=== PATIENT | female | born 1960 | race Caucasian/White ===

== ENCOUNTER 2018-04-26 12:28 | Emergency (ER) | payer OTHER ==
[2018-04-26] MEDS ORDERED: SUCRALFATE 1GM/10ML UCUP PO ONE (14:00)
[2018-04-26 14:06] LABS: Absolute Lymphocytes (CBC) 1.9 K/uL (0.7-4.9); Absolute Monocytes 0.6 K/uL (0.1-1.3); Absolute Neutrophil 4.9 K/uL (1.8-8.0); Basophils % 0.3 % (0-1.3); Eosinophils % 0.6 % (0-4.4); Hematocrit 42.2 % (36.0-45.0); Lymphocytes % 25.9 % (15.3-44.8); MCV 92.9 fL (80-100); MPV 7.6 fL (7.6-11.3); Monocytes % 7.5 % (3.3-12.3); RBC Red Blood Cell Count 4.55 M/uL (3.86-4.86)
[2018-04-26 14:14] LABS: ALT/SGPT 45 U/L (12-78); AST/SGOT 28 U/L (15-37); Albumin 4.1 g/dL (3.4-5.0); Alkaline Phosphatase 79 U/L (45-117); BUN Blood Urea Nitrogen 12 mg/dL (7-18); Bicarbonate 30 mmol/L (21-32); Bilirubin Direct 0.2 mg/dL (0-0.2); Bilirubin Total 1.5 mg/dL (0.2-1.0); Glucose Level 94 mg/dL (74-106); Lipase 73 U/L (73-393); Magnesium 2.2 mg/dL (1.8-2.4); NT PRO-BNP 99 pg/mL (<125); Potassium 3.9 mmol/L (3.5-5.1); Protein, Total 7.7 g/dL (6.4-8.2); Sodium Level 139 mmol/L (136-145); Troponin (Emerg Dept Use Only) < 0.02 ng/mL (0.0-0.045)
--- NOTE | 2018-04-26 14:38 | RAD REPORT ---
EXAM DESCRIPTION: RAD - Chest Single View - 04/26/2018 2:14 pm CLINICAL HISTORY: Chest pain, epigastric pain COMPARISON: None. TECHNIQUE: AP portable chest image was obtained 1410 hours . FINDINGS: No peripheral mass, consolidation or failure finding. Interstitial markings are prominent suspected to be a baseline mild fibrotic pattern. Heart and vasculature are normal. No measurable ple ural effusion and no pneumothorax. No gross bony abnormality seen. No acute aortic findings suspected . IMPRESSION: No acute cardiopulmonary process. Prominence of the interstitial markings is favored to be baseline.
--- NOTE | 2018-04-26 15:34 | RAD REPORT ---
EXAM DESCRIPTION: CT - Stone Protocol - 04/26/2018 3:19 pm CLINICAL HISTORY: Epigastric pain, left-sided chest and abdomen pain, history of Crohn's disease COMPARISON: None. TECHNIQUE: Axial 5 mm thick images were obtained without oral or IV contrast. The [id number] span s the entirety of the system including uppermost abdomen and lung bases. All CT scans are performed using dose optimization technique as appropriate and may include automated exposure control or mA/KV adjustment according to patient size. FINDINGS: No hydronephrosis is present and no obstructing ureteral calculi. No suspicious renal mass es. Isodense masses and pyelonephritis are not excluded on a stone protocol CT scan. No urinary bladd er suspicious finding. No uterine or right ovarian abnormality. Left ovary contains a 3.[address] finding of cyst hemorrhage or rupture. Imaged portions of the liver, spleen and pancreas show no suspicious findings on non-contrast imaging . In the midline left lobe a 4.6 centimeter homogeneous thin-walled cyst is present. There is a 6 mil limeter low-density area in the medial segment left lobe too small to fully characterize. Cholecystec ian clips are present. No biliary tree dilatation. No significant adrenal finding. No suspicious bowel findings. Moderate stool volume is present throughout otherwise unremarkable colo n. There is minimal diverticulosis without diverticulitis. No mass or bulky lymphadenopathy. Patient has a very small 12 millimeter fat only umbilical hernia. N o free air, free fluid or inflammatory stranding. No significant bony abnormality. IMPRESSION: No obstruction, hydronephrosis or acute finding. Isodense masses and pyelonephritis are not excluded on stone protocol technique. Patient has a 3.8 centimeter left ovarian cyst without evidence for cyst hemorrhage or rupture. Additional nonacute findings detailed in the body of the report.
--- NOTE | 2018-04-26 15:42 | ER ---
Nurse's Notes [facility] Name: Erica Barriga Age: 58 yrs Sex: Female : 1960 Arrival Date: 04/26/2018 Time: 12:31 Bed 6 Private MD: Mick Funez V Diagnosis: Epigastric pain Presentation: 04/26 12:33 Presenting complaint: Patient states: " I've been having chest pain that radiates to my ph back." Pt reports epigastric pain and L sided chest pain that radiates to back, dizziness, SOB, denies nausea. Transition of care: patient was not received from another setting of care. Onset of symptoms was April 26, 2018. Risk Assessment: Do you want to hurt yourself or someone else? Patient reports no desire to harm self or others. Initial Sepsis Screen: Does the patient meet any 2 criteria? No. Patient's initial sepsis screen is negative. Does the patient have a suspected source of infection? No. Patient's initial sepsis screen is negative. Care prior to arrival: None. 12:33 Method Of Arrival: Ambulatory ph 12:33 Acuity: OLIVER 3 ph Historical: - Allergies: 12:35 No Known Allergies; ph - Home Meds: 14:14 Pentasa 500 mg Oral cpER 2 caps 4 times per day [Active]; colestipol oral oral hb [Active]; levothyroxine 100 mcg tab 1 tab once daily [Active]; methscopolamine 5 mg oral tab 1 tab 4 times per day [Active]; - PMHx: 12:35 Crohn's; ph - PSHx: 14:14 Thyroidectomy; hb - Immunization history:: Adult Immunizations unknown. - Social history:: Smoking status: Patient/guardian denies using tobacco. - Ebola Screening: : No symptoms or risks identified at this time. Screenin:36 Abuse screen: Denies threats or abuse. Denies injuries from another. Nutritional ph screening: No deficits noted. Tuberculosis screening: No symptoms or risk factors identified. 14:04 Fall Risk None identified. sv Assessment: 13:40 General: Appears in no apparent distress. comfortable, slender, well groomed, well sv developed, Behavior is calm, cooperative, appropriate for age. Pain: Complains of pain in xyphoid area and epigastric area, back and left shoulder blade area Pain does not radiate. Pain currently is 8 out of 10 on a pain scale. Quality of pain is described as aching, dull, Pain began 2-3 days ago. Pt reports having an episode on 04/13/18 and at that time she "kind of blacked out." Pt reports seeing different colors while out of town. Is intermittent. Neuro: Level of Consciousness is awake, alert, obeys commands, Oriented to person, place, time, situation, Moves all extremities. Full function Gait is steady, Speech is normal. Cardiovascular: Patient's skin is warm and dry. Rhythm is sinus rhythm. Respiratory: Respiratory effort is even, unlabored, Respiratory pattern is regular, symmetrical. : No signs and/or symptoms were reported regarding the genitourinary system. EENT: No signs and/or symptoms were reported regarding the EENT system. Derm: Skin is pink, warm \\T\\ dry. Musculoskeletal: No signs and/or symptoms reported regarding the musculoskeletal system. 14:45 Reassessment: Patient appears in no apparent distress at this time. No changes from hb previously documented assessment. Patient and/or family updated on plan of care and expected duration. Pain level reassessed. Patient is alert, oriented x 3, equal unlabored respirations, skin warm/dry/pink. 15:29 Reassessment: Patient appears in no apparent distress at this time. No changes from hb previously documented assessment. Patient and/or family updated on plan of care and expected duration. Pain level reassessed. Patient is alert, oriented x 3, equal unlabored respirations, skin warm/dry/pink. Vital Signs: 12:35 BP 159 / 87; Pulse 87; Resp 18; Temp 98.0; Pulse Ox 100% on R/A; Weight 61.23 kg; ph Height 5 ft. 6 in. (167.64 cm); Pain 8/10; 14:04 BP 138 / 81; Pulse 67; Resp 12; Pulse Ox 98% on R/A; sv 15:49 BP 125 / 83; Pulse 71; Resp 14; Pulse Ox 99% ; sv 12:35 Body Mass Index 21.79 (61.23 kg, 167.64 cm) ph ED Course: 12:31 Patient arrived in ED. sb2 12:31 Mick Funez MD is Private Physician. sb2 12:34 Triage completed. ph 12:36 Arm band placed on. ph 12:42 EKG done, reviewed by Frederick Dhillon MD. at1 13:13 Herman Landry MD is Attending Physician. 13:40 Patient has correct armband on for positive identification. Placed in gown. Bed in low sv position. Call light in reach. Adult w/ patient. air sampling and monitoring on. Pulse ox on. NIBP on. Door closed. Warm blanket given. Head of bed elevated. 13:40 Initial lab(s) drawn, by me, sent to lab. Inserted saline lock: 20 gauge in right sv antecubital area, using aseptic technique. Blood collected. Flushed right antecubital with 5 ml normal saline. 13:51 Latesha Encinas, RN is Primary Nurse. sv 14:04 Awaiting lab results, Awaiting for x-ray. sv 14:04 Patient maintains SpO2 saturation greater than 95% on room air. sv 14:12 XRAY Chest (1 view) In Process Unspecified. EDMS 15:20 CT Stone Protocol In Process Unspecified. EDMS 15:41 Mick Funez MD is Referral Physician. Administered Medications: 14:20 Drug: CarafATE 1 grams Route: PO; sv 15:50 Follow up: Response: No adverse reaction sv Outcome: 15:41 Discharge ordered by . 16:24 Patient left the ED. Signatures: Dispatcher [employer] EDLatesha Alvarado RN RN Symone Hardy RN RN Jaquelin Rodriguez, design drafter EKG Tat1 Nichole Barber RN RN Victoria Marin RN RN Herman Landry MD MD Tawny Ferguson sb2 Corrections: (The following items were deleted from the chart) 12:37 12:33 Presenting complaint: Patient states: " I 've been having chest pain that ph radiates to my back." Pt reports epigastric pain that radiates to back, dizziness, SOB, denies nausea ph
--- NOTE | 2018-04-26 15:42 | EDPHYS ---
Physician Documentation [facility] Name: Erica Barriga Age: 58 yrs Sex: Female : 1960 Arrival Date: 04/26/2018 Time: 12:31 Bed 6 Private MD: Mick Funez V ED Physician Herman Landry HPI: 04/26 17:12 This 58 yrs old Female presents to ER via Ambulatory with complaints of gs epigastric pain, Back Pain. 17:12 The patient presents with abdominal pain in the epigastric area. Onset: The gs symptoms/episode began/occurred gradually, yesterday. The symptoms radiate to lumbar area. Associated signs and symptoms: Pertinent positives: nausea. The symptoms are described as burning, sharp. Modifying factors: The symptoms are alleviated by nothing, the symptoms are aggravated by nothing. Severity of pain: At its worst the pain was moderate in the emergency department the pain is unchanged. The patient has experienced similar episodes in the past, multiple times, over past couple of years, last time was severe like this was 2-3 weeks ago felt like she was going to pass out then. scheduled to see gi doctor today.. Historical: - Allergies: 12:35 No Known Allergies; ph - Home Meds: 14:14 Pentasa 500 mg Oral cpER 2 caps 4 times per day [Active]; colestipol oral oral hb [Active]; levothyroxine 100 mcg tab 1 tab once daily [Active]; methscopolamine 5 mg oral tab 1 tab 4 times per day [Active]; - PMHx: 12:35 Crohn's; ph - PSHx: 14:14 Thyroidectomy; hb - Immunization history:: Adult Immunizations unknown. - Social history:: Smoking status: Patient/guardian denies using tobacco. - Ebola Screening: : No symptoms or risks identified at this time. ROS: 17:12 All other systems are negative. gs Exam: 17:12 Head/Face: Normocephalic, atraumatic. Eyes: Pupils equal round and reactive to light, gs extra-ocular motions intact. Lids and lashes normal. Conjunctiva and sclera are non-icteric and not injected. Cornea within normal limits. Periorbital areas with no swelling, redness, or edema. ENT: Nares patent. No nasal discharge, no septal abnormalities noted. Tympanic membranes are normal and external auditory canals are clear. Oropharynx with no redness, swelling, or masses, exudates, or evidence of obstruction, uvula midline. Mucous membranes moist. Neck: Trachea midline, no thyromegaly or masses palpated, and no cervical lymphadenopathy. Supple, full range of motion without nuchal rigidity, or vertebral point tenderness. No Meningismus. Chest/axilla: Normal chest wall appearance and motion. Nontender with no deformity. No lesions are appreciated. Cardiovascular: Regular rate and rhythm with a normal S1 and S2. No gallops, murmurs, or rubs. Normal PMI, no JVD. No pulse deficits. Respiratory: Lungs have equal breath sounds bilaterally, clear to auscultation and percussion. No rales, rhonchi or wheezes noted. No increased work of breathing, no retractions or nasal flaring. Back: No spinal tenderness. No costovertebral tenderness. Full range of motion. Skin: Warm, dry with normal turgor. Normal color with no rashes, no lesions, and no evidence of cellulitis. MS/ Extremity: Pulses equal, no cyanosis. Neurovascular intact. Full, normal range of motion. Neuro: Awake and alert, GCS 15, oriented to person, place, time, and situation. Cranial nerves II-XII grossly intact. Motor strength 5/5 in all extremities. Sensory grossly intact. Cerebellar exam normal. Normal gait. 17:12 Constitutional: The patient appears alert, awake. 17:12 Abdomen/GI: Palpation: moderate abdominal tenderness, in the epigastric area, rebound tenderness, is not appreciated. 17:12 ECG was reviewed by the Attending Physician. Vital Signs: 12:35 BP 159 / 87; Pulse 87; Resp 18; Temp 98.0; Pulse Ox 100% on R/A; Weight 61.23 kg; ph Height 5 ft. 6 in. (167.64 cm); Pain 8/10; 14:04 BP 138 / 81; Pulse 67; Resp 12; Pulse Ox 98% on R/A; sv 15:49 BP 125 / 83; Pulse 71; Resp 14; Pulse Ox 99% ; sv 12:35 Body Mass Index 21.79 (61.23 kg, 167.64 cm) ph MDM: 13:29 Patient medically screened. 17:12 Differential diagnosis: AAA, coronary artery disease, myocardia ischemia or infarction, gs non-specific abd pain, pancreatitis, Peptic Ulcer Disease. Data reviewed: vital signs, nurses notes. Data reviewed: lab test result(s), EKG, radiologic studies. Counseling: I had a detailed discussion with the patient and/or guardian regarding: the historical points, exam findings, and any diagnostic results supporting the discharge/admit diagnosis, lab results, radiology results, the need for outpatient follow up. Response to treatment: the patient's symptoms have markedly improved after treatment, and as a result, I will discharge patient. 04/26 13:33 Order name: Basic Metabolic Panel; Complete Time: 15:02 04/26 13:33 Order name: CBC with Diff; Complete Time: 15:02 04/26 13:33 Order name: LFT's; Complete Time: 15:02 04/26 13:33 Order name: Magnesium; Complete Time: 15:02 04/26 13:33 Order name: NT PRO-BNP; Complete Time: 15:02 04/26 13:33 Order name: PT-INR; Complete Time: 15:02 04/26 13:33 Order name: Troponin (emerg Dept Use Only); Complete Time: 15:02 04/26 13:33 Order name: XRAY Chest (1 view); Complete Time: 15:02 04/26 13:33 Order name: EKG; Complete Time: 13:35 04/26 13:33 Order name: Lipase; Complete Time: 15:02 04/26 15:02 Order name: CT Stone Protocol; Complete Time: 15:40 04/26 15:12 Order name: Urine Dipstick--Ancillary (enter results) 04/26 13:33 Order name: Cardiac monitoring; Complete Time: 14:01 04/26 13:33 Order name: EKG - Nurse/Tech; Complete Time: 14:01 04/26 13:33 Order name: IV Saline Lock; Complete Time: 14:01 04/26 13:33 Order name: Labs collected and sent; Complete Time: 14:01 04/26 13:33 Order name: O2 Per Protocol; Complete Time: 14:01 04/26 13:33 Order name: O2 Sat Monitoring; Complete Time: 14:01 04/26 13:33 Order name: Urine Dipstick-Ancillary (obtain specimen); Complete Time: 14:52 gs EC:12 Rate is 81 beats/min. Rhythm is regular. FL interval is normal. QRS interval is normal. gs Q waves are Present in lead aVL. No ST changes noted. Clinical impression: Abnormal EKG without significant change. Interpreted by me. Administered Medications: 14:20 Drug: CarafATE 1 grams Route: PO; sv 15:50 Follow up: Response: No adverse reaction sv Disposition: 04/26/18 15:41 Discharged to Home. Impression: Epigastric pain. - Condition is Stable. - Discharge Instructions: Abdominal Pain, Adult. - Prescriptions for Pepcid 20 mg Oral Tablet - take 1 tablet by ORAL route every 12 hours for 10 days; 20 tablet. - Medication Reconciliation Form, Thank You Letter, Antibiotic Education, Prescription Opioid Use form. - Follow up: Mick Funez MD; When: 2 - 3 days; Reason: Re-evaluation by your physician. Signatures: Dispatcher [employer] [facility] Latesha Encinas RN RN Symone Hardy RN RN Nichole Barber RN RN Victoria Marin RN RN Herman Landry MD MD Corrections: (The following items were deleted from the chart) 14:18 13:35 Abdomen Limited+US.RAD.BRZ ordered. [facility] 16:24 15:41 04/26/2018 15:41 Discharged to Home. Impression: Epigastric pain. Condition is ss Stable. Forms are Medication Reconciliation Form, Thank You Letter, Antibiotic Education, Prescription Opioid Use. Follow up: Mick Funez; When: 2 - 3 days; Reason: Re-evaluation by your physician. gs
[2018-04-26 17:27] LABS: Urine Blood NEGATIVE (NEG); Urine Glucose NEGATIVE (NEG); Urine Protein NEGATIVE (NEG); Urine pH 5.5 (5.0-7.0)
--- NOTE | 2018-04-27 04:19 | EKG ---
Test Date: 2018-04-26 Test Time: 12:41:23 Jalousie Installer: FAB MEASUREMENT RESULTS: Intervals: Rate: 81 FL: 138 QRSD: 82 QT: 394 QTc: 457 [place]: P: 85 FL: 138 QRS: 73 T: 71 INTERPRETIVE STATEMENTS: Normal sinus rhythm Normal ECG Compared to ECG 03/21/2007 07:23:56 Sinus bradycardia no longer present Electronically Signed On 04-27-18 04:17:29 CDT by Arsenio Abarca
== END 2018-04-26 16:24 | disposition home or self-care (01) ==
LOC: ER 12:28
DX: R10.13 Epigastric pain (principal); K50.90 Crohn's disease, unspecified, without complications
CPT/HCPCS: 36415; 71045; 74176; 76377; 80048; 80076; 81003; 83690; 83735; 83880; 84484; 85025; 85610; 93005; 99285

== ENCOUNTER 2019-01-03 06:25 | Day surgery (SDC) | payer OTHER ==
[2018-12-28 13:35] LABS: Absolute Lymphocytes (CBC) 2.3 K/uL (0.7-4.9); Absolute Monocytes 0.6 K/uL (0.1-1.3); Absolute Neutrophil 3.8 K/uL (1.8-8.0); Basophils % 0.3 % (0-1.3); Eosinophils % 0.4 % (0-4.4); Hematocrit 44.2 % (36.0-45.0); Lymphocytes % 34.2 % (15.3-44.8); MPV 7.6 fL (7.6-11.3); Monocytes % 8.7 % (3.3-12.3); RBC Red Blood Cell Count 4.73 M/uL (3.86-4.86)
[2018-12-28 13:36] LABS: Urine Appearance CLEAR; Urine Bilirubin NEGATIVE (NEG); Urine Blood NEGATIVE (NEG); Urine Color YELLOW; Urine Glucose NEGATIVE (NEG); Urine Protein NEGATIVE (NEG); Urine Specific Gravity 1.015 (1.005-1.030); Urine Urobilinogen 0.2 mg/dL (0.2-1.0)
[2018-12-28 13:37] LABS: Urine Microscopic Reflex ORDER UMIC
[2018-12-28 14:13] LABS: Urine Bacteria <20 /HPF (<20); Urine Culture Reflex Order REFLEXED; Urine Mucus 1+ /HPF (NONE SEEN); Urine RBC <5 /HPF (NONE SEEN)
--- OUTSIDE RECORDS SUMMARY | 2019-01-03 06:26 | XMS REPORT | Clinical Summary ---
:1960 Author Organization [facility] Address [address] [place] [address] Care Team Providers Name Role Phone Mick Funez Primary Care Provider Allergies No Known Allergies Medications Medication Sig Dispensed Refills Start Date End Date Status levothyroxine Take 100 mcg by 0 Active (SYNTHROID, LEVOTHROID) mouth Every 100 MCG tablet morning on an empty stomach. valACYclovir (VALTREX) Take 1,000 mg by 0 Active 1000 MG tablet mouth as needed. colestipol HCl Take by mouth. 0 Active (COLESTIPOL ORAL) methscopolamine (PAMINE Take 5 mg by 0 Active FORTE) 5 MG tablet mouth nightly. mesalamine (PENTASA) 500 Take 1,500 mg by 0 Active MG CR capsule mouth 2 (two) times daily. Lactobacillus Take by mouth. 0 Active acidophilus (PROBIOTIC ORAL) multivitamin capsule Take 1 capsule 0 Active by mouth daily. Active Problems Not on file Encounters Date Type Specialty Care Team Description 11/14/2018 Anesthesia Event Diana Solares MD 11/14/2018 Surgery Mk Garcia MD COLONOSCOPY 11/14/2018 Hospital Encounter Mk Garcia MD 10/17/2018 Hospital Encounter Pre-Admission [facility] Phone after 01/02/2018 Social History Tobacco Use Types Packs/Day Years Used Date Former Smoker Smokeless Tobacco: Never Used Comments: smoked as a teenager for 2 yrs Alcohol Use Drinks/Week oz/Week Comments No Alcohol Habits Answer Date Recorded How often do you have a drink containing alcohol? Never 10/17/2018 How many drinks containing alcohol do you have on a typical Not asked day when you are drinking? How often do you have six or more drinks on one occasion? Not asked Sex Assigned at Date Recorded Not on file Job Start Date Occupation Industry Not on file Not on file Not on file Travel History Travel Start Travel End No recent travel history available. Last Filed Vital Signs Vital Sign Reading Time Taken Blood Pressure 119/71 11/14/2018 11:25 AM CDT Pulse 63 11/14/2018 11:25 AM CDT Temperature 36.4 C (97.6 F) 11/14/2018 11:10 AM CDT Respiratory Rate 17 11/14/2018 11:25 AM CDT Oxygen Saturation 100% 11/14/2018 11:25 AM CDT Inhaled Oxygen Concentration - - Weight 59.4 kg (131 lb) 11/14/2018 10:14 AM CDT Height 167.6 cm (5' 6") 11/14/2018 10:14 AM CDT Body Mass Index 21.14 11/14/2018 10:14 AM CDT Plan of Treatment Not on file Procedures Procedure Name Priority Date/Time Associated Comments Diagnosis REPORT OF PROCEDURE 11/14/2018 11:32 - ENDOSCOPY URL AM CDT TISSUE EXAM AP Routine 11/14/2018 11:01 Results for this AM CDT procedure are in the results section. COLONOSCOPY 11/14/2018 10:30 Personal history of AM CDT colonic polyps after 01/02/2018 Results REPORT OF PROCEDURE - ENDOSCOPY URL (11/14/2018 11:32 AM CDT) Narrative Performed At Tissue Exam (11/14/2018 11:01 AM CDT) Case Report Surgical Pathology Report Case: [id number] [facility] Authorizing Provider:Mk Garcia MDCollected: 11/14/2018 1101 [facility] Ordering Location: [facility] ENDOSCOPY Received: 11/14/2018 1548 SERVICES Pathologist: Cheri Daniel MD Specimen:Colon Biopsy, Random, Random colon biopsies DIAGNOSIS A. COLON, RANDOM BIOPSY: [facility] - COLONIC MUCOSA WITH MILD ARCHITEXTURAL DISTORTION AND FOCAL PANETH CELL METAPLASIA (see comment) [facility] - NO SIGNIFICANT INCREASE IN CHRONIC OR ACTIVE INFLAMMATION NOTED SJ/pl Signing Pathologist Direct Phone Line: [phone] COMMENT These features are not specific and suggestive of prior injury which include and not limited to resolving infection, drugs, diverticulosis or treated inflammatory bowel disease. No features of active co [facility] litis or lymphoplasmacytic infiltrate noted. Negative for dysplasia [facility] Endoscopic report reviewed. CPT Code(s) 71358 X1 [facility] CLINICAL HISTORY Personal history of colonic [facility] polyps [facility] SPECIMEN SOURCE Random colon biopsy [facility] GROSS DESCRIPTION The specimen is received in a [facility] formalin-filled container [facility] labeled with the patient's information and labeled "random colon biopsy" and consists of four fragments of kay tissue ranging from 0.1 to 0.2 cm, submitted entirely in A1. CG/ew MICROSCOPIC DESCRIPTION Performed [facility] Specimen Tissue - Colon Biopsy, Random Performing Organization Address City/State/Zipcode Phone Number [facility] [address] [place] [address] [phone] CENTER after 01/02/2018 Insurance Payer Benefit Plan / Group Subscriber ID Type Phone Address [employer] - [employer] C[employer] HMO POS QPOS xxxxxxxxx HMO/POS
--- OUTSIDE RECORDS SUMMARY | 2019-01-03 06:26 | XMS REPORT ---
:1960 [facility] Address [address] [place] [address] Dr. [address] [place] [id number] Care Team Providers Name Role Phone MK GARCIA Unavailable Unavailable Problems This patient has no known problems. Allergies, Adverse Reactions, Alerts This patient has no known allergies or adverse reactions. Medications This patient has no known medications. Results Test Description Test Time Test Comments Text Results Atomic Results Result Comments TISSUE EXAM 2018-11-15 13:30:00 Surgical Pathology Report Case: [id number] Authorizing Provider: Mk Garcia MD Collected: 11/14/2018 1101 Ordering Location: [facility] Received: 11/14/2018 1548 SERVICES Pathologist: Cheri Daniel MD Specimen: Colon Biopsy, Random, Random colon biopsies A. COLON, RANDOM BIOPSY: - COLONIC MUCOSA WITH MILD ARCHITEXTURAL DISTORTION AND FOCAL PANETH CELL METAPLASIA (see comment) - NO SIGNIFICANT INCREASE IN CHRONIC OR ACTIVE INFLAMMATION NOTED SJ/pl Signing Pathologist Direct Phone Line: [phone] signed by Cheri Daniel MD on 11/15/2018 at 1:30 PMThese features are not specific and suggestive of prior injury which include and not limited to resolving infection, drugs, diverticulosis or treated inflammatory bowel disease. No features of active colitis or lymphoplasmacytic infiltrate noted. Negative for dysplasia Endoscopic report reviewed. [id number] history of colonic polyps Random colon biopsy The specimen is received in a formalin-filled container labeled with the patient's information and labeled "random colon biopsy" and consists of four fragments of kay tissue ranging from 0.1 to 0.2 cm, submitted entirely in A1. CG/ew Performed
[2019-01-03] MEDS ORDERED: SCOPOLAMINE HYDROBROMIDE PATCH TD ONE (06:50)
[2019-01-03] MEDS ORDERED: Ringers Lactate 1,000 ML IV ONE ×2 (06:50→09:21)
[2019-01-03] MEDS ORDERED: PROPOFOL 200 MG/20 ML VIAL IV ONE (07:22)
[2019-01-03] MEDS ORDERED: MIDAZOLAM HCL 2 MG/2 ML INJ ONE (07:22)
[2019-01-03] MEDS ORDERED: ROCURONIUM 50 MG/5 ML VIAL IV ONE (07:22)
[2019-01-03] MEDS ORDERED: ONDANSETRON 4 MG/2 ML VIAL ONE (07:22)
[2019-01-03] MEDS ORDERED: LIDOCAINE 2% MPF 5 ML VIAL ONE (07:22)
[2019-01-03] MEDS ORDERED: FENTANYL CITR 250 MCG/5 ML ONE (07:22)
[2019-01-03] MEDS ORDERED: GLYCOPYRROLATE 0.2 MG/ML SYR ONE ×2 (08:36→08:37)
[2019-01-03] MEDS ORDERED: CEFAZOLIN SODIUM 1 GM/VIAL ONE (09:00)
[2019-01-03] MEDS ORDERED: KETOROLAC 30 MG/ML INJ ONE (09:08)
--- NOTE | 2019-01-03 09:24 | P.BOP ---
Preoperative diagnosis: pelvic pain. left ovarian cyst Postoperative diagnosis: same, acute appendicitis Primary procedure: Laparoscopic appendectomy , intraopertative consult By Dr Romero Secondary procedure: See Dr Schneider for buoy tender procedure Estimated blood loss: <10cc ( general surgery part) Specimen: joyce, ovarian cyst Findings: Appendix erythematous with acute inlfammation, assymmetrical in shape/ color Anesthesia: General Complications: None Transferred to: Recovery Room Condition: Good
[2019-01-03] MEDS ORDERED: MEPERIDINE HCL 25 MG/0.5 ML ONE (09:52)
[2019-01-03] MEDS ORDERED: HYDROCODONE/APAP 5/325 MG TAB ONE (10:41)
[2019-01-03] MEDS ORDERED: IBUPROFEN 200 MG TAB PO ONE (10:47)
[2019-01-03] MEDS ORDERED: IBUPROFEN 400 MG TAB ONE (10:47)
[2019-01-03] MEDS ORDERED: PROMETHAZINE 25 MG/ML VIAL ONE (11:13)
--- NOTE | 2019-01-03 19:34 | OP ---
Date of Procedure: 01/03/2019 Surgeon: Aparna Schneider MD [employer] Distribution Plant Operator: Alma Hebert. Preoperative Diagnoses: Pelvic pain, left adnexal mass increasing in size. Postoperative Diagnoses: Pelvic pain, left adnexal mass increasing in size and enlarged thickened ap pendix. Procedures Performed: Diagnostic laparoscopy, bilateral salpingo-oophorectomy, pelvic washings, appe ndectomy by Dr. Romero. Estimated Blood Loss: Minimal. Complications: Uterine perforation. Drains: None. Findings: The left ovary had an ovarian mass with a smooth surface. No tumor seen on the surface. Both tubes unremarkable and not dilated. The right ovary was normal. Uterus was very small. Perfor ation was at the fundus, and this was repaired with a 3-0 Monocryl in a eyxsrb-cw-aytrm fashion. The re was excellent hemostasis. The appendix was enlarged and dilated at the distal half and scarred to the mesocolon in this area. The proximal part closer to the cecum was undilated and mostly unremark able. The patient is a 58-year-old female with a left adnexal mass that has been followed, slightly increas ed in size, pelvic pain, history of Crohn disease. I discussed about the options of continuing obser vation versus diagnostic laparoscopy. Given the pain, the patient wanted to proceed with the surgica l intervention. She was consented appropriately, and brought to the OR. No antibiotics were given as the scheduled case was a BSO, later on 2 g of Ancef were given when the decision for an appendectomy was made. Procedure In Detail: After informed consent was verified, she was taken back to OR, placed in supine fashion on the operating table. After general anesthesia was given, she was placed in a dorsal lith otomy position using Bryce stirrups. Arms were tucked by the side after positioning was checked. Ab domen, vulva, vagina, and perineum were prepped and draped in a sterile fashion. SCDs were started p rior to the case and a time-out was done. The patient then was draped in a sterile fashion. A specu lum was placed to expose the cervix. Anterior lip grasped with 2 Allis clamps, sounded to 6 cm, and the VCare was placed. While popping the balloon into the uterine cavity, the cavity was small, it li belinda caused a perforation. This was dissected, and carefully care was taken not to advance the tip. The tip was fixed there. The backstop was fixed in place, so that could not move. Chairez was placed attached to a drainage bag. This area draped. A 1 cm infraumbilical incision was made with a scalpel using the open laparoscopy technique. Fascia was incised with a scalpel, tagged with 0 Vicryl sutures and peritoneum entered bluntly. S retractor s placed. Roslyn introduced. Site of entry was checked after the camera was placed through this and was unremarkable. Upper abdominal surface was unremarkable. Lower abdominal surfaces mostly unrema rkable excepting very tiny amount of blood from the uterine perforation. Once this was confirmed, it was at the fundus, and no involvement of the bowel, thorough irrigation and suction were performed a fter placing two 5 ports in the suprapubic and left lower quadrants, then pelvic washings were done. Decision was made to leave the uterus alone, put a stitch there. Appendix was visualized and had a distortion as described above in the findings. The plan was to remove the appendix. The broad ligament was opened up. The IP ligament was isolated, LigaSure was taken to take this down on the left side first, then after identifying the ureter, the course of the ureter was unremarkable and undistorted. The mesosalpinx and the utero-ovarian ligament were all taken down. Then, the lef t ovary and tube were detached using the LigaSure and left in the posterior cul-de-sac. The right tu be was dissected from its fimbriated end. Then, the broad ligament was opened up and a window made f or the infundibulopelvic ligament medial to it and inferior making sure the ureter was away. Then th e EnSeal was used to take down the infundibulopelvic ligament. There was excellent hemostasis, and t he rest of the utero-ovarian ligament was taken down and went through the entire tubal removal and at tachment with the EnSeal. All the specimens were collected in a specimen bag. Then this was left in place and the uterine perforation was sutured. The VCare was pulled back. A 3-0 Monocryl suture wa s placed in a cudcrw-sy-reoum fashion and tied down after going through the entire wall of the deputy attorney general ior and the anterior uterine cavity or anterior echols. Then, there was excellent hemostasis. The VC are was pulled out. Then the case was handed over to Dr. Romero's to be able to finish this append ectomy, and then removal of my specimens as well, closure with the tagged 0 Vicryl sutures on either sides, and I left the room at this point. EBL was minimal. Toradol was 30 mg at the end of the appe ndectomy was planned. The patient will follow up with me in 1 week for a postop visit. Instrument, needle, and sponge counts at the time were correct. DANNA/KELLEY Voice ID: [id number] Report ID: [id number]
--- NOTE | 2019-01-04 05:32 | DS ---
Date of Discharge: 01/03/2019 Discharge Medications: Cipro 500 p.o. q.12. Pain medications prescribed by the lamp mechanic. Followup: Follow up in my office in 1 week. Call for appointment [phone]. Keep the area dry for 48 hours, then may shower. SHERIF Voice ID: [id number] Report ID: [id number]
--- NOTE | 2019-01-04 05:32 | OP ---
Date of Procedure: 01/03/2019 Surgeon: Jose Romero MD Preoperative Diagnoses: Pelvic pain, left ovarian cyst. Postoperative Diagnosis: Pelvic pain, left ovarian cyst plus acute appendicitis. Procedures: Laparoscopic appendectomy. Intraoperative consult by Dr. Romero. For gynecological p rocedures, please refer to Dr. Schneider's dictation. Estimated Blood Loss: Less than 10 cc. Specimen: Appendix and ovary, ovarian cyst. Findings: Appendix erythematosus with acute inflammation, asymmetrical in shape and color. Anesthesia: General. Indications: This is the case of a 58-year-old patient who came to the hospital and Dr. Schneider per formed a gynecological procedure. During the case found to have an inflamed, erythematosus, asymmetr ical in shape and color appendix so I was called for the intraoperative consult. We evaluated the pa tient. We agreed with Dr. Schneider that appendix is definitely abnormal so we scrubbed in. The inst ruments were ready in the suprapubic and left lower quadrant area. So after she finished gynecologic al procedure, we created a window in the base of the appendix, transected that with an Endo MAGED 45 mm 3.5 and the mesoappendix with an Endo MAGED 45 mm 2.5. No bowel leak. No bleeding. Her appendix was removed from abdominal cavity using an EndoCatch through umbilical incision and the previous specime n from Dr. Schneider was also removed at the same time, which is referred as ovarian cyst. From the s urgical standpoint, we checked for hemostasis. No bleeding. No bowel leak. The area of Dr. Buster leon looks also intact. At that moment, I proceeded to remove the trocars under direct vision. Deflate d the pneumoperitoneum. Closed the fascia with #1 Vicryl. Irrigated subcutaneous tissue, closed jessie t with 3-0 chromic and the skin was approximated. Sponge count and instrument counts were correct. The patient tolerated the procedure well. The patient was sent to recovery in stable condition. DAVION/KELLEY Voice ID: [id number] Report ID: [id number]
== END 2019-01-03 12:38 | disposition home or self-care (01) ==
LOC: OR 06:25
PROVIDERS: ATTEND Obstetrics & Gynecology
PROC: 0UB74ZZ Excision of Bilateral Fallopian Tubes, Percutaneous Endoscopic Approach (ICD-10-PCS; 2019-01-03)
PROC: 0DTJ4ZZ Resection of Appendix, Percutaneous Endoscopic Approach (ICD-10-PCS; 2019-01-03)
PROC: 0UB24ZZ Excision of Bilateral Ovaries, Percutaneous Endoscopic Approach (ICD-10-PCS; principal; 2019-01-03 07:30)
DX: N83.8 Other noninflammatory disorders of ovary, fallopian tube and broad ligament (principal); D27.1 Benign neoplasm of left ovary; N99.71 Accidental puncture and laceration of a genitourinary system organ or structure during a genitourinary system procedure; Y83.6 Removal of other organ (partial) (total) as the cause of abnormal reaction of the patient, or of later complication, without mention of misadventure at the time of the procedure; Y76.3 Surgical instruments, materials and obstetric and gynecological devices (including sutures) associated with adverse incidents; Y92.234 Operating room of hospital as the place of occurrence of the external cause; K35.80 Unspecified acute appendicitis; K50.00 Crohn's disease of small intestine without complications; N95.1 Menopausal and female climacteric states; Z79.899 Other long term (current) drug therapy
CPT/HCPCS: 36415; 81003; 81015; 85025; 86850; 86900; 86901; 87086; 87088; 88108; 88304; 88305; J0690; J2175; J2250; J2405; J2550; J2704; J3010

== ENCOUNTER 2024-12-09 08:16 | Emergency (ER) | payer OTHER ==
[2024-12-09 08:53] LABS: Absolute Basophils 0.1 K/uL (0-0.5); Absolute Lymphocytes (CBC) 2.1 K/uL (0.7-4.9); Absolute Monocytes 0.8 K/uL (0.1-1.3); Absolute Neutrophil 6.2 K/uL (1.8-8.0); Basophils % 0.6 % (0-1.3); Eosinophils % 0.3 % (0-4.4); Hematocrit 43.1 % (36.0-45.0); Hemoglobin 14.9 g/dL (12.0-15.0); MCH 31.9 pg (27.0-35.0); MCHC 34.7 g/dL (32.0-36.0); MPV 7.3 fL (7.6-11.3); Monocytes % 8.8 % (3.3-12.3); Neutrophils % 67.3 % (41.7-73.7); Platelets 330 thou/uL (152-406); RBC Red Blood Cell Count 4.68 M/uL (3.86-4.86); Red Cell Distribution Width 13.3 % (12.1-15.2)
[2024-12-09] MEDS ORDERED: ONDANSETRON 4 MG/2 ML VIAL ONE (08:53)
[2024-12-09] MEDS ORDERED: FAMOTIDINE 20 MG/2 ML VIAL IV ONE (08:54)
[2024-12-09] MEDS ORDERED: CIPROFLOXACIN 400mg IV 400 MG/200 ML BAG IV ONE (08:54)
[2024-12-09] MEDS ORDERED: MORPHINE 2 MG/ML SYR ONE (08:54)
[2024-12-09] MEDS ORDERED: METRONIDAZOLE 500mg IVPB 500 MG/100 ML BAG IV ONE (08:54)
[2024-12-09] MEDS ORDERED: NA CHLORIDE 0.9% 1,000 ML ONE (08:54)
[2024-12-09 08:58] LABS: PT Prothrombin Time 11.6 SECONDS (10-13.0); Protime INR 1.02
[2024-12-09 09:11] LABS: Albumin 3.6 g/dL (3.4-5.0); Anion Gap 7.7 mEq/L (5.0-15.0); Bilirubin Direct 0.2 mg/dL (0-0.2); Bilirubin Total 1.2 mg/dL (0.2-1.0); Globulin 3.7 g/dL (2.3-3.5); Potassium 3.7 mEq/L (3.5-5.1); Protein, Total 7.3 g/dL (6.4-8.2)
--- NOTE | 2024-12-09 09:22 | RAD REPORT ---
EXAM: Chest Single View HISTORY: 64 years Female ABDOMINAL DISTENTION COMPARISON: None. FINDINGS: LUNGS/PLEURA: The lungs are clear. No pleural effusions or pneumothorax. No pulmonary edema. CARDIAC/MEDIASTINUM: The cardiac silhouette is within normal limits. UPPER ABDOMEN: No significant abnormality. BONES: No acute abnormality. LINES/TUBES/OTHER: N/A IMPRESSION: No evidence of acute cardiopulmonary disease.
--- NOTE | 2024-12-09 09:54 | RAD REPORT ---
EXAMINATION: Abdomen Pelvis W Contrast CLINICAL INDICATION: Female, 64 years old.ABD PAIN TECHNIQUE: CT abdomen and pelvis was performed, after the administration of IV contrast, [facility]. Axial, sagittal and coronal reconstructions were obtained. One or more of the following dose reduction techniques were used: Automated exposure control, adjustment of the mA and/o r kV according to patient size, and/or iterative reconstruction. Unless otherwise specified, incidental findings do not require dedicated imaging follow-up. [id number]. COMPARISON: No prior exam. FINDINGS: LOWER CHEST: No acute process identified.No significant pericardial effusion. UPPER GI: No significant abnormality. LIVER: Benign appearing low density liver lesions. No suspicious mass. GALLBLADDER/BILE DUCTS: Cholecystectomy. Mild extra-hepatic biliary ductal dilatation is likely relat ed to the post-cholecystectomy state. Consider correlating with LFT's.? PANCREAS: No mass, ductal dilation, or romel-pancreatic fluid. SPLEEN: Unremarkable. ADRENALS: No adrenal masses. KIDNEYS AND URETERS: No hydronephrosis.Low density and/or too small to characterize renal lesions whi ch are statistically benign.No renal calculi.No ureteral calculi. ABDOMINAL AORTA AND OTHER VESSELS: Normal caliber aorta and IVC. PERITONEUM: No abnormal free fluid. No free air. LYMPH NODES: No pathologic lymphadenopathy. ABDOMINAL WALL: Unremarkable SMALL BOWEL/COLON: Colonic wall thickening extending from the splenic flexure through the proximal si gmoid.Appendectomy. Low formed stool burden. URINARY BLADDER: Underdistended but grossly unremarkable. REPRODUCTIVE ORGANS: No pathologic process. MUSCULOSKELETAL: No acute or suspicious osseous abnormality. ADDITIONAL FINDINGS: None. IMPRESSION: Colitis extending from the splenic flexure through the proximal sigmoid likely reflecting infectious or inflammatory etiologies, less likely ischemic.
[2024-12-09 10:29] LABS: Specific Gravity 1.023 (1.005-1.030); Urine Bilirubin NEGATIVE (Negative); Urine Blood Negative (Negative); Urine Clarity Clear (Clear); Urine Color Colorless (Yellow); Urine Glucose NEGATIVE (Negative); Urine Ketones NEGATIVE (Negative); Urine Microscopic Reflex YN NO UMIC; Urine Nitrite NEGATIVE (Negative); Urine Protein NEGATIVE (Negative); Urine Urobilinogen Normal (Normal)
[2024-12-09] MEDS ORDERED: METHYLPREDNISOLONE 125 MG INJ ONE (10:40)
--- NOTE | 2024-12-09 10:42 | EDPHYS ---
Physician Documentation [facility] Name: Erica Barriga Age: 64 yrs Sex: Female : 1960 Arrival Date: 12/09/2024 Time: 08:16 Bed 20 Private MD: ED Physician Frederick Dhillon HPI: 12/09 08:37 This 64 yrs old Female presents to ER via Ambulatory with complaints of devendra Rectal Bleeding, Abdominal Pain, Vomiting/Diarrhea. 08:37 The patient presents to the emergency department with bleeding from the rectum/anus, devendra that is mild. Onset: The symptoms/episode began/occurred 3 day(s) ago. Context: the patient has no known special context relating to the rectal area complaint(s). Modifying factors: The symptoms are alleviated by nothing, The symptoms are aggravated by bowel movement, movement. Associate signs and symptoms: The patient has no apparent associated signs or symptoms. The patient has experienced similar episodes in the past, several times. Historical: - Allergies: 08:34 No Known Allergies; ld1 - PMHx: 08:34 Crohn's; ld1 - Immunization history:: Adult Immunizations up to date. - Infectious Disease History:: Denies. - Social history:: Smoking status: Patient denies any tobacco usage or history of. ROS: 08:38 Constitutional: Negative for fever, chills, and weight loss, Eyes: Negative for injury, devendra pain, redness, and discharge, ENT: Negative for injury, pain, and discharge, Neck: Negative for injury, pain, and swelling, Cardiovascular: Negative for chest pain, palpitations, and edema, Respiratory: Negative for shortness of breath, cough, wheezing, and pleuritic chest pain, Back: Negative for injury and pain, : Negative for injury, bleeding, discharge, and swelling, MS/Extremity: Negative for injury and deformity, Skin: Negative for injury, rash, and discoloration, Neuro: Negative for headache, weakness, numbness, tingling, and seizure, Psych: Negative for depression, anxiety, suicide ideation, homicidal ideation, and hallucinations, Allergy/Immunology: Negative for hives, rash, and allergies, Endocrine: Negative for neck swelling, polydipsia, polyuria, polyphagia, and marked weight changes, Hematologic/Lymphatic: Negative for swollen nodes, abnormal bleeding, and unusual bruising, 08:38 Abdomen/GI: Positive for abdominal pain, nausea and vomiting, diarrhea, abdominal cramps, abdominal distension, Exam: 08:38 Constitutional: This is a well developed, well nourished patient who is awake, alert, devendra and in no acute distress. Head/Face: Normocephalic, atraumatic. Eyes: Pupils equal round and reactive to light, extra-ocular motions intact. Lids and lashes normal. Conjunctiva and sclera are non-icteric and not injected. Cornea within normal limits. Periorbital areas with no swelling, redness, or edema. ENT: Nares patent. No nasal discharge, no septal abnormalities noted. Tympanic membranes are normal and external auditory canals are clear. Oropharynx with no redness, swelling, or masses, exudates, or evidence of obstruction, uvula midline. Mucous membranes moist. Neck: Trachea midline, no thyromegaly or masses palpated, and no cervical lymphadenopathy. Supple, full range of motion without nuchal rigidity, or vertebral point tenderness. No Meningismus. Chest/axilla: Normal chest wall appearance and motion. Nontender with no deformity. No lesions are appreciated. Cardiovascular: Regular rate and rhythm with a normal S1 and S2. No gallops, murmurs, or rubs. Normal PMI, no JVD. No pulse deficits. Respiratory: Lungs have equal breath sounds bilaterally, clear to auscultation and percussion. No rales, rhonchi or wheezes noted. No increased work of breathing, no retractions or nasal flaring. Back: No spinal tenderness. No costovertebral tenderness. Full range of motion. Female : Normal external genitalia. Skin: Warm, dry with normal turgor. Normal color with no rashes, no lesions, and no evidence of cellulitis. MS/ Extremity: Pulses equal, no cyanosis. Neurovascular intact. Full, normal range of motion., bilateral aka Neuro: Awake and alert, GCS 15, oriented to person, place, time, and situation. Cranial nerves II-XII grossly intact. Motor strength 5/5 in all extremities. Sensory grossly intact. Cerebellar exam normal. Normal gait. Psych: Awake, alert, with orientation to person, place and time. Behavior, mood, and affect are within normal limits. 08:38 Abdomen/GI: Inspection: abdomen appears normal, Bowel sounds: normal, Palpation: mild abdominal tenderness, moderate abdominal tenderness, in the right lower quadrant and left lower quadrant, Liver: no appreciated palpable abnormalities, Hernia: not appreciated, 09:14 ECG was reviewed by the Attending Physician. [facility] Vital Signs: 08:46 BP 139 / 84; Pulse 86; Resp 18; Temp 97.5(TE); Pulse Ox 100% on R/A; Weight 66.68 kg; ld1 Height 5 ft. 5 in. ; Pain 7/10; 10:24 BP 129 / 76; Pulse 81; Resp 18; Pulse Ox 100% on R/A; ld1 08:46 Body Mass Index 24.46 (66.68 kg, 165.1 cm) ld1 08:46 Pain Scale: Adult ld1 MDM: 08:21 Medical Screening Exam initiated devendra 08:40 Differential diagnosis: Nonspecific abd pain, pancreatitis, diverticulitis, viral devendra gastroenteritis, gastroenteritis, hemorrhoids, bowel obstruction, diverticulitis, GI Bleed, Irritable bowel syndrome, Mesenteric ischemia or infarction, myocardia ischemia or infarction, non-specific abd pain, pancreatitis, Peptic Ulcer Disease, Perf. Duodenal Ulcer, Pyelonephritis, urinary tract infection. Data reviewed: vital signs, nurses notes, lab test result(s), EKG, radiologic studies, CT scan, plain films. Consideration of Admission/Observation Escalation of care including admission/observation considered. I considered the following discharge prescriptions or medication management in the emergency department Medications were administered in the Emergency Department. See MAR. Independent interpretation of the following test(s) in the Emergency Department EKG: See my EKG interpretation above. Test considered but Not performed: Ultrasound no abd usg. Historians other than the Patient: Spouse/Significant Other: well informed. Care significantly affected by the following chronic conditions: crohns. Counseling: I had a detailed discussion with the patient and/or guardian regarding the historical points, exam findings, and any diagnostic results supporting the discharge/admit diagnosis, lab results, radiology results. 12/09 08:26 Order name: Basic Metabolic Panel; Complete Time: 09:37 [facility] 12/09 08:26 Order name: CBC with Diff; Complete Time: 09:37 [facility] 12/09 08:26 Order name: LFT's; Complete Time: 09:37 [facility] 12/09 08:26 Order name: Magnesium; Complete Time: 09:37 [facility] 12/09 08:26 Order name: NT PRO-BNP; Complete Time: 09:37 [facility] 12/09 08:26 Order name: PT-INR; Complete Time: 09:37 [facility] 12/09 08:26 Order name: Troponin HS; Complete Time: 09:37 [facility] 12/09 08:26 Order name: Lipase; Complete Time: 09:37 [facility] 12/09 08:26 Order name: Urinalysis w/ reflexes; Complete Time: 10:30 [facility] 12/09 08:26 Order name: Type And Screen; Complete Time: 10:30 [facility] 12/09 08:42 Order name: Fecal Leukocyte Stain 12/09 08:42 Order name: Stool Culture 12/09 08:26 Order name: XRAY Chest (1 view); Complete Time: 09:37 [facility] 12/09 08:26 Order name: CT Abd/Pelvis - IV Contrast Only; Complete Time: 10:30 [facility] 12/09 08:26 Order name: EKG; Complete Time: 08:27 [facility] 12/09 08:26 Order name: Cardiac monitoring; Complete Time: 08:46 [facility] 12/09 08:26 Order name: EKG - Nurse/Tech; Complete Time: 09:15 [facility] 12/09 08:26 Order name: IV Saline Lock; Complete Time: 08:46 [facility] 12/09 08:26 Order name: Labs collected and sent; Complete Time: 08:46 [facility] 12/09 08:26 Order name: O2 Per Protocol; Complete Time: 08:33 [facility] 12/09 08:26 Order name: O2 Sat Monitoring; Complete Time: 08:33 [facility] EC:14 Rate is 63 beats/min. Rhythm is regular. QRS Bayard is Normal. NM interval is normal. QRS devendra interval is normal. QT interval is normal. No Q waves. T waves are Normal. Clinical impression: NSR w/ Non-specific ST/T Changes, LVH, and No evidence of ischemia. Interpreted by me. Reviewed by me. Administered Medications: 09:14 Not Given (Patient Refused): [id number] mg 100 ml IVPB at 200 ml/hr once over 30 ld1 mins 09:14 Drug: morphine IVP or IV 2 mg IVP once over 4 mins Route: IVP; Infused Over: 4 mins; ld1 Site: right antecubital; 09:14 Drug: Ondansetron IVP 4 mg IVP once; over 2 minutes Route: IVP; Site: right antecubital;ld1 09:15 Drug: NS 0.9% IV 1000 ml IV at 1000 ml once; to be given as a bolus over 60 minutes ld1 Route: IV; Rate: 1000 ml; Site: right antecubital; 09:15 Drug: Famotidine IVP 20 mg IVP once; dilute with 10 mL 0.9% NaCl; give over 2 minutes ld1 Route: IVP; Site: right antecubital; 09:15 Drug: Ciprofloxacin IVPB 400 mg 200 ml IVPB once over 60 mins Volume: 200 ml; Route: ld1 IVPB; Infused Over: 60 mins; Site: right antecubital; 09:15 Not Given (Patient Refused): morphineor iv 2 mg IVP once over 4 mins ld1 10:47 Drug: MethylPrednisoLONE IVP 125 mg IVP once Route: IVP; Site: right antecubital; ld1 Disposition Summary: 12/09/24 10:41 Discharge Ordered Notes: Location: Home [facility] Problem: new [facility] Symptoms: have improved devendra Condition: Fair devendra Diagnosis - Abdominal tenderness devendra - Crohn's disease of large intestine with rectal bleeding devendra Followup: devendra - With: Private Physician - When: 2 - 3 days - Reason: Recheck today's complaints, Continuance of care, Re-evaluation by your physician Followup: devendra - With: Eladio Bush MD - When: 2 - 3 days - Reason: Recheck today's complaints, Continuance of care, Re-evaluation by your physician Discharge Instructions: - Discharge Summary Sheet [facility] - Abdominal Pain, Adult devendra - Crohn's Disease [facility] - Gastrointestinal Bleeding [facility] - Abdominal Pain, Adult, Yeip-oe-Mwmo [facility] Forms: - Medication Reconciliation Form [facility] - Antibiotic Education [facility] - Prescription Opioid Use [facility] - Patient Portal Instructions [facility] - Leadership Thank You Letter [facility] Prescriptions: - ondansetron 4 mg Oral Tablet,disintegrating - take 1 tablet ORAL route every 6-8 hours for 5 days prn; 20 tablet; Refills: 0, [facility] Product Selection Permitted - Flagyl 500 mg Oral tablet - take 1 tablet ORAL route every 6 hours for 7 days; 28 tablet; Refills: 0, [facility] Product Selection Permitted - Cipro 500 mg Oral Tablet - take 1 tablet ORAL route every 12 hours for 7 days; 14 tablet; Refills: 0, [facility] Product Selection Permitted - Medrol (Cesario) 4 mg Oral Tablets, Dose Pack - take 1 tablet ORAL route as directed - follow package instructions; 1 packet; devendra Refills: 0, Product Selection Permitted - dicyclomine 20 mg Oral tablet - take 1 tablet ORAL route 4 times per day; 28 tablet; Refills: 0, Product devendra Selection Permitted Signatures: Dispatcher [employer] Frederick Ramos MD MD cha Sims, Lauren RN RN ld1 Corrections: (The following items were deleted from the chart) 08:27 08:27 BASIC METABOLIC PANEL+C.LAB.BRZ ordered. EDMS EDMS 08:27 08:27 CBC+H.LAB.BRZ ordered. EDMS EDMS 08:27 08:27 HEPATIC FUNCTION+C.LAB.BRZ ordered. EDMS EDMS 08:27 08:27 MAGNESIUM+C.LAB.BRZ ordered. EDMS EDMS 08:27 08:27 PROBNP+C.LAB.BRZ ordered. EDMS EDMS 08:27 08:27 PROTIME (+INR)+COAG.LAB.BRZ ordered. EDMS EDMS 08:27 08:27 Troponin High Sensitivity+C.LAB.BRZ ordered. EDMS EDMS 08:27 08:27 LIPASE+C.LAB.BRZ ordered. EDMS EDMS 08:27 08:27 Urinalysis+U.LAB.BRZ ordered. EDMS EDMS 08:27 08:27 TYPE AND SCREEN+BB.LAB.BRZ ordered. EDMS EDMS
--- NOTE | 2024-12-09 10:42 | ER ---
Nurse's Notes [facility] Name: Erica Barriga Age: 64 yrs Sex: Female : 1960 Arrival Date: 12/09/2024 Time: 08:16 Bed 20 Private MD: Diagnosis: Abdominal tenderness;Crohn's disease of large intestine with rectal bleeding Presentation: 12/09 08:34 Coronavirus screen: At this time, the client does not indicate any symptoms associated ld1 with coronavirus-19. Ebola Screen: No symptoms or risks identified at this time. Risk Assessment: Do you want to hurt yourself or someone else? Patient reports no desire to harm self or others. Onset of symptoms was December 09, 2024 at 08:34. 08:34 Method Of Arrival: Ambulatory ld1 08:34 Acuity: OLIVER 3 ld1 08:49 Chief complaint: Patient states: Upper abdominal pain - rectal bleeding. Initial Sepsis ld1 Screen: Does the patient meet any 2 criteria? No. Patient's initial sepsis screen is negative. Does the patient have a suspected source of infection? No. Patient's initial sepsis screen is negative. Triage Assessment: 08:49 General: Appears in no apparent distress. uncomfortable, Behavior is calm, cooperative, ld1 appropriate for age. Pain: Complains of pain in abdomen Pain does not radiate. Pain currently is 8 out of 10 on a pain scale. Quality of pain is described as throbbing, Pain began suddenly, Is continuous. EENT: No signs and/or symptoms were reported regarding the EENT system. Neuro: Level of Consciousness is awake, alert, obeys commands, Oriented to person, place, time, situation. Cardiovascular: Capillary refill < 3 seconds Patient's skin is warm and dry. Respiratory: Airway is patent Respiratory effort is even, unlabored. GI: Abdomen is round non-distended, Reports lower abdominal pain, upper abdominal pain, rectal bleeding. : No signs and/or symptoms were reported regarding the genitourinary system. Derm: No signs and/or symptoms reported regarding the dermatologic system. Musculoskeletal: No signs and/or symptoms reported regarding the musculoskeletal system. Historical: - Allergies: 08:34 No Known Allergies; ld1 - PMHx: 08:34 Crohn's; ld1 - Immunization history:: Adult Immunizations up to date. - Infectious Disease History:: Denies. - Social history:: Smoking status: Patient denies any tobacco usage or history of. Screenin:50 [facility] ED Fall Risk Assessment (Adult) History of falling in the last 3 months, ld1 including since admission No falls in past 3 months (0 pts) Confusion or Disorientation No (0 pts) Intoxicated or Sedated No (0 pts) Impaired Gait No (0 pts) Mobility Assist Device Used No (0 pt) Altered Elimination No (0 pt) Score/Fall Risk Level 0 - 2 = Low Risk Oriented to surroundings, Hourly rounding (assess needs \T\ fall precautionary measures) done. Abuse screen: Denies threats or abuse. Denies injuries from another. Nutritional screening: No deficits noted. Tuberculosis screening: No symptoms or risk factors identified. Assessment: 08:50 Reassessment: See triage assessment. ld1 10:24 Reassessment: Patient appears in no apparent distress at this time. No changes from ld1 previously documented assessment. Patient and/or family updated on plan of care and expected duration. Pain level reassessed. Patient is alert, oriented x 3, equal unlabored respirations, skin warm/dry/pink. Vital Signs: 08:46 BP 139 / 84; Pulse 86; Resp 18; Temp 97.5(TE); Pulse Ox 100% on R/A; Weight 66.68 kg; ld1 Height 5 ft. 5 in. ; Pain 7/10; 10:24 BP 129 / 76; Pulse 81; Resp 18; Pulse Ox 100% on R/A; ld1 08:46 Body Mass Index 24.46 (66.68 kg, 165.1 cm) ld1 08:46 Pain Scale: Adult ld1 ED Course: 08:20 Patient arrived in ED. im 08:21 Frederick Dhillon MD is Attending Physician. devendra 08:33 Roxi Emerson, SALVADOR is Primary Nurse. ld1 08:34 Triage completed. ld1 08:46 Type And Screen Sent. ld1 08:49 Arm band placed on right wrist. ld1 08:50 No provider procedures requiring assistance completed. Inserted saline lock: 20 gauge ld1 in right antecubital area, using aseptic technique. Blood collected. Flushed with 10 mL NS. 08:50 Patient has correct armband on for positive identification. Placed in gown. Bed in low ld1 position. Call light in reach. Side rails up X2. monitoring and evaluation advisor on. Pulse ox on. NIBP on. Door closed. Noise minimized. Warm blanket given. 09:09 XRAY Chest (1 view) In Process Unspecified. EDMS 09:15 Type And Screen Sent. ld1 09:48 CT Abd/Pelvis - IV Contrast Only In Process Unspecified. EDMS 10:41 Eladio Bush MD is Referral Physician. devendra 10:58 IV discontinued, intact, bleeding controlled, No redness/swelling at site. ld1 Administered Medications: 09:14 Not Given (Patient Refused): [id number] mg 100 ml IVPB at 200 ml/hr once over 30 ld1 mins 09:14 Drug: morphine IVP or IV 2 mg IVP once over 4 mins Route: IVP; Infused Over: 4 mins; ld1 Site: right antecubital; 09:14 Drug: Ondansetron IVP 4 mg IVP once; over 2 minutes Route: IVP; Site: right antecubital;ld1 09:15 Drug: NS 0.9% IV 1000 ml IV at 1000 ml once; to be given as a bolus over 60 minutes ld1 Route: IV; Rate: 1000 ml; Site: right antecubital; 09:15 Drug: Famotidine IVP 20 mg IVP once; dilute with 10 mL 0.9% NaCl; give over 2 minutes ld1 Route: IVP; Site: right antecubital; 09:15 Drug: Ciprofloxacin IVPB 400 mg 200 ml IVPB once over 60 mins Volume: 200 ml; Route: ld1 IVPB; Infused Over: 60 mins; Site: right antecubital; 09:15 Not Given (Patient Refused): morphineor iv 2 mg IVP once over 4 mins ld1 10:47 Drug: MethylPrednisoLONE IVP 125 mg IVP once Route: IVP; Site: right antecubital; ld1 Medication: 08:50 VIS not applicable for this client. ld1 Outcome: 10:41 Discharge ordered by . devendra 10:57 Discharged to home ambulatory, with family, ld1 10:57 Condition: stable 10:57 Condition: good 10:57 Discharge instructions given to patient, family, Instructed on discharge instructions, follow up and referral plans. medication usage, Demonstrated understanding of instructions, follow-up care, medications, Prescriptions given X 5 10:58 Patient left the ED. ld1 Signatures: Dispatcher [employer] Frederick Ramos MD MD cha Sims, Lauren, RN RN ld1 Ernestina Mckeon
[2024-12-09 11:05] VITALS: TEMP 97.5; O2SAT 100
[2024-12-09 11:06] VITALS: BP 129/76
== END 2024-12-09 10:58 | disposition home or self-care (01) ==
LOC: ER 08:16
DX: K50.911 Crohn's disease, unspecified, with rectal bleeding (principal); R11.2 Nausea with vomiting, unspecified
CPT/HCPCS: 93005; 85025; 80048; 36415; 86900; 83735; 86850; 85610; 86901; 80076; 81003; 84484; 83690; 83880; 74177; 71045; Q9967; J2270; J2919; J2405; J0744; J7030; 96374; 96375; 99285